=== PATIENT | female | born 1985 | race Caucasian/White ===

== ENCOUNTER 2016-10-12 22:15 | Emergency (ER) | payer OTHER | END 2016-10-12 23:15 | disposition home or self-care (01) | LOC: FER 22:15 | DX: S63.501A Unspecified sprain of right wrist, initial encounter (principal); G40.909 Epilepsy, unspecified, not intractable, without status epilepticus; F17.210 Nicotine dependence, cigarettes, uncomplicated; Z88.2 Allergy status to sulfonamides; X50.1XXA Overexertion from prolonged static or awkward postures, initial encounter; Y99.8 Other external cause status | CPT/HCPCS: 73110; 73130; J1885 ==